=== PATIENT | male | born 1965 | race Caucasian/White ===

== ENCOUNTER 2019-11-16 17:44 | Emergency (ER) | payer OTHER ==
[2019-11-16] MEDS ORDERED: Ketorolac Tromethamine 30 MG/ML VIAL ONE (18:13)
--- NOTE | 2019-11-16 18:34 | RAD ---
LEFT WRIST FOUR VIEWS: 11/16/19 HISTORY: Injury, left wrist pain. FINDINGS/IMPRESSION: No acute fracture or dislocation is seen. If symptoms do not improve, follow-up exam should be obtained in 7-10 days. POS: [facility]
[2019-11-16] MEDS ORDERED: Ibuprofen 800 MG TAB ONE (18:48)
== END 2019-11-16 19:00 | disposition home or self-care (01) ==
LOC: MADERS 17:44
DX: S63.502A Unspecified sprain of left wrist, initial encounter (principal); X58.XXXA Exposure to other specified factors, initial encounter
CPT/HCPCS: J1885